=== PATIENT | male | born 1965 | race Caucasian/White ===

== ENCOUNTER 2020-11-17 13:36 | Emergency (ER) | payer SELFPAY ==
[~2020-11-17] VITALS: Ht 180.3 cm; Wt 85.0 kg
[~2020-11-17 13:36] MED LIST: AMLODIPINE10 MG PO; AUGMENTIN875TAB OR; CLINDAMYCIN300 M1 PO; CORTISPORIN OTI10 ML AS; LEVAQUIN500 MG PO; LISINOP/HCTZ1 TA2 PO; NAPROSYN500 MG PO; PENICILLN VK500 MG PO; ULTRAM50 MG OR; UNKNOWN MEDS; ZITHROMAX500 MG PO
[2020-11-17 17:28] LABS: HEMATOCRIT 47.9 % (39.0-50.0); HEMOGLOBIN 16.2 g/dl (14.0-18.0); IMMATURE GRANULOCYTES 0.8 % (0.0-5.0); MEAN CORPUSCULAR HGB 28.1 pG CALC (26.0-32.0); MEAN CORPUSCULAR HGB CONC 33.8 g/dL CAL (32.0-36.0); NEUT# 3.41 thou/uL (1.82-7.42); RED BLOOD COUNT 5.77 mill/uL (4.70-6.10); RED CELL DISTRI WIDTH 12.2 % (11.5-15.5)
[2020-11-17 17:39] LABS: ALBUMIN 4.8 g/dL (3.2-5.0); BILIRUBIN, TOTAL 0.6 mg/dL (0.0-1.4); BUN 16 mg/dL (9-20); BUN/CREATININE RATIO 17 (12-20 (CALC)); CHLORIDE 98 mmol/l (95-108); GFR > 60 ML/MIN (>=60 (CALC)); GFR FOR AFR.AMER. > 60 ML/MIN (>=60 (CALC)); POTASSIUM 4.5 mmol/l (3.5-5.1); SODIUM 135 mmol/l (137-146)
[2020-11-17 17:47] LABS: ALKALINE PHOSPHATASE 142 u/l (38-126); ANION GAP 29 (6-22 (CALC)); CARBON DIOXIDE 13 mmol/l (22-30); SGOT/AST 113 u/l (17-59); TOTAL PROTEIN 9.5 g/dL (6.3-8.2)
[2020-11-17 18:40] VITALS: BP 144/101
== END 2020-11-17 18:27 | disposition left against medical advice (07) | DRG 305 ==
LOC: ED 13:36
PROVIDERS: Emergency Medicine
DX: I10 Essential (primary) hypertension (principal); F17.200 Nicotine dependence, unspecified, uncomplicated; T46.5X6A Underdosing of other antihypertensive drugs, initial encounter; Z91.128 Patient's intentional underdosing of medication regimen for other reason; Z91.19 Patient's noncompliance with other medical treatment and regimen

== ENCOUNTER 2021-06-03 08:01 | Observation (INO) | payer SELFPAY ==
[~2021-06-03] VITALS: Ht 180.3 cm; Wt 96.0 kg
[2021-06-03] VITALS (20 sets, daily range): BP systolic 124–173; BP diastolic 74–114
[2021-06-03] MEDS ORDERED: PLAVIX75 MG PO (08:27)
[2021-06-03] MEDS ORDERED: METOPROL TAR25 MG PO (08:27)
[2021-06-03 09:46] LABS: HEMOGLOBIN 15.3 g/dl (14.0-18.0); IMMATURE GRANULOCYTES 0.2 % (0.0-5.0); MEAN CORPUSCULAR HGB 33.4 pG CALC (26.0-32.0); NEUT# 5.54 thou/uL (1.82-7.42); RED BLOOD COUNT 4.58 mill/uL (4.70-6.10); RED CELL DISTRI WIDTH 13.3 % (11.5-15.5)
[2021-06-03 09:50] LABS: URINE BILIRUBIN - DIPSTICK NEGATIVE (NEGATIVE); URINE BLOOD DIPSTICK NEGATIVE (NEGATIVE); URINE COLOR YELLOW; URINE GLUCOSE - DIPSTICK NEGATIVE (NEGATIVE); URINE KETONE NEGATIVE (NEGATIVE); URINE LEUK ESTERASE NEGATIVE (NEGATIVE); URINE PROTEIN - DIPSTICK NEGATIVE (NEG-TRACE); URINE UROBILINOGEN - DIPSTICK 0.2 E.U./dL (0.2)
[2021-06-03 09:50] LABS: MEAN CELL VOLUME 98.3 fL CALC (80.0-100.0)
[2021-06-03 09:51] LABS: URINE NITRITE - DIPSTICK NEGATIVE (Negative)
[2021-06-03 10:06] LABS: ALKALINE PHOSPHATASE 84 u/l (38-126); BILIRUBIN, TOTAL 0.4 mg/dL (0.0-1.4); BUN 10 mg/dL (9-20); BUN/CREATININE RATIO 17 (12-20 (CALC)); CHLORIDE 105 mmol/l (95-108); CREATININE 0.6 mg/dL (0.7-1.3); GFR > 60 ML/MIN (>=60 (CALC)); GFR FOR AFR.AMER. > 60 ML/MIN (>=60 (CALC)); POTASSIUM 4.2 mmol/l (3.5-5.1); SODIUM 134 mmol/l (137-146)
[2021-06-03 10:07] LABS: ANION GAP 10 (6-22 (CALC)); CARBON DIOXIDE 23 mmol/l (22-30); SGOT/AST 27 u/l (17-59); TOTAL PROTEIN 7.1 g/dL (6.3-8.2)
[2021-06-03 10:15] LABS: MYOGLOBIN 26 ng/mL (0 - 121)
[2021-06-04 03:09] VITALS: BP 154/98
[2021-06-04 05:28] LABS: ANION GAP 10 (6-22 (CALC)); BUN 11 mg/dL (9-20); BUN/CREATININE RATIO 15 (12-20 (CALC)); CALCULATED LDLCHOLESTEROL 97 mg/dL (62-129 (CALC)); CARBON DIOXIDE 22 mmol/l (22-30); CHLORIDE 106 mmol/l (95-108); CHOLESTEROL HDL RATIO 2.9 (<4.4 (CALC)); CREATININE 0.7 mg/dL (0.7-1.3); GFR > 60 ML/MIN (>=60 (CALC)); GFR FOR AFR.AMER. > 60 ML/MIN (>=60 (CALC)); HDL CHOLESTEROL 61 mg/dL (>=40); MAGNESIUM 2.1 mg/dL (1.6-2.3); POTASSIUM 4.3 mmol/l (3.5-5.1); SODIUM 134 mmol/l (137-146); TOTAL CHOLESTEROL 179 mg/dl (0-199); TOTAL TRIGLYCERIDES 108 mg/dl (30-149); VLDL CHOLESTROL 22 mg/dl (8-62 (CALC))
[2021-06-04 07:25] VITALS: BP 147/82
[2021-06-04] MEDS ORDERED: METOPROL TAR25 MG PO (10:58)
[2021-06-04] MEDS ORDERED: ADLT ASA LOW81 MG PO (10:58)
[2021-06-04] MEDS ORDERED: LISINOPRIL5 MG PO (11:00)
[2021-06-04] MEDS ORDERED: ATORVASTATIN CA40 MG PO (11:00)
[2021-06-04 11:17] VITALS: BP 127/85
== END 2021-06-04 12:04 | disposition home or self-care (01) | DRG 313 ==
LOC: ED 08:01 → ED-I 10:40 → ED 11:23 → MS2 11:24
PROVIDERS: Emergency Medicine; ADMIT Internal Medicine; ATTEND Internal Medicine
DX: R07.9 Chest pain, unspecified (principal); R42 Dizziness and giddiness; R01.1 Cardiac murmur, unspecified; I25.10 Atherosclerotic heart disease of native coronary artery without angina pectoris; I10 Essential (primary) hypertension; F17.200 Nicotine dependence, unspecified, uncomplicated; Z95.5 Presence of coronary angioplasty implant and graft; Z79.02 Long term (current) use of antithrombotics/antiplatelets; Z20.822 Contact with and (suspected) exposure to COVID-19
CPT/HCPCS: G0378

== ENCOUNTER 2021-07-01 10:27 | Emergency (ER) | payer SELFPAY ==
[~2021-07-01] VITALS: Ht 180.3 cm; Wt 96.4 kg
[~2021-07-01 10:27] MED LIST changes: +ADLT ASA LOW81 MG PO; +ATORVASTATIN CA40 MG PO; +LISINOPRIL5 MG PO; +METOPROL TAR25 MG PO; +PLAVIX75 MG PO
[2021-07-01 10:35] VITALS: BP 149/103
[2021-07-01 11:11] VITALS: BP 151/98
[2021-07-01] MEDS ORDERED: IBUPROFEN600 MG PO (11:16)
[2021-07-01] MEDS ORDERED: COLACE100 MG PO (11:16)
[2021-07-01 11:20] VITALS: BP 151/98
== END 2021-07-01 11:27 | disposition home or self-care (01) | DRG 950 ==
LOC: ED 10:27
DX: S01.01XD Laceration without foreign body of scalp, subsequent encounter (principal); S51.012D Laceration without foreign body of left elbow, subsequent encounter; K59.00 Constipation, unspecified; I10 Essential (primary) hypertension; F17.210 Nicotine dependence, cigarettes, uncomplicated; V29.9XXD Motorcycle rider (driver) (passenger) injured in unspecified traffic accident, subsequent encounter

== ENCOUNTER 2021-11-10 08:54 | Emergency (ER) | payer SELFPAY ==
[2021-11-10] VITALS (14 sets, daily range): BP systolic 117–198; BP diastolic 74–107
[~2021-11-10] VITALS: Ht 180.3 cm; Wt 100.0 kg
[~2021-11-10 08:54] MED LIST changes: +COLACE100 MG PO; +IBUPROFEN600 MG PO
[2021-11-10 09:31] LABS: HEMATOCRIT 46.5 % (39.0-50.0); HEMOGLOBIN 15.9 g/dl (14.0-18.0); IMMATURE GRANULOCYTES 0.5 % (0.0-5.0); MEAN CELL VOLUME 92.8 fL CALC (80.0-100.0); MEAN CORPUSCULAR HGB 31.7 pG CALC (26.0-32.0); MEAN CORPUSCULAR HGB CONC 34.2 g/dL CAL (32.0-36.0); NEUT# 4.19 thou/uL (1.82-7.42); RED BLOOD COUNT 5.01 mill/uL (4.70-6.10); RED CELL DISTRI WIDTH 13.4 % (11.5-15.5)
[2021-11-10 10:09] LABS: ALBUMIN 4.4 g/dL (3.2-5.0); ALKALINE PHOSPHATASE 104 u/l (38-126); ANION GAP 14 (6-22 (CALC)); BILIRUBIN, TOTAL 0.5 mg/dL (0.0-1.4); BUN 8 mg/dL (9-20); BUN/CREATININE RATIO 12 (12-20 (CALC)); CARBON DIOXIDE 24 mmol/l (22-30); CHLORIDE 103 mmol/l (95-108); CREATININE 0.7 mg/dL (0.7-1.3); GFR FOR AFR.AMER. > 60 ML/MIN (>=60 (CALC)); GFR OTHER RACES > 60 ML/MIN (>=60 (CALC)); LIPASE 143 u/l (23-300); POTASSIUM 4.3 mmol/l (3.5-5.1); SGOT/AST 31 u/l (17-59); SODIUM 136 mmol/l (137-146); TOTAL PROTEIN 7.6 g/dL (6.3-8.2)
== END 2021-11-10 11:56 | disposition short-term general hospital (02) | DRG 313 ==
LOC: ED 08:54
PROVIDERS: Internal Medicine
DX: R07.9 Chest pain, unspecified (principal); I10 Essential (primary) hypertension; F17.210 Nicotine dependence, cigarettes, uncomplicated; Z95.5 Presence of coronary angioplasty implant and graft; Z79.02 Long term (current) use of antithrombotics/antiplatelets

== ENCOUNTER 2024-03-05 14:08 | Emergency (ER) | payer MEDICARE ==
[~2024-03-05] VITALS: Ht 180.3 cm; Wt 135.0 kg
[2024-03-05] VITALS (15 sets, daily range): BP systolic 148–208; BP diastolic 73–164
[2024-03-05] MEDS ORDERED: SODIUM CHLORIDE 0.9% 1,000 ML IV ONE ×2 (14:15→15:45)
[2024-03-05] MEDS ORDERED: ONDANSETRON HCl 4 MG/2 ML SDV IV ONE (14:15)
[2024-03-05 14:25] LABS: EOS% 5.1 % (0-8); HEMOGLOBIN 16.9 g/dl (14.0-18.0); LYMPH% 19.7 % (15-41); MEAN CELL VOLUME 94.5 fL CALC (80.0-100.0); MEAN CORPUSCULAR HGB 31.9 pG CALC (26.0-32.0); MEAN CORPUSCULAR HGB CONC 33.8 g/dL CAL (32.0-36.0); MONO% 11.2 % (2-13); NEUT# 4.98 thou/uL (1.82-7.42); RED BLOOD COUNT 5.29 mill/uL (4.70-6.10); RED CELL DISTRI WIDTH 12.8 % (11.5-15.5)
[2024-03-05] MEDS ORDERED: hydrALAZINE HCL 20 MG/ML VIAL(1 ML) IV ONE (14:45)
[2024-03-05 14:48] LABS: ALBUMIN 4.7 g/dL (3.2-5.0); BILIRUBIN, TOTAL 0.4 mg/dL (0.2-1.3); CREATININE 0.7 mg/dL (0.7-1.3); POTASSIUM 3.9 mmol/l (3.5-5.1); TOTAL PROTEIN 8.1 g/dL (6.3-8.2)
[2024-03-05] MEDS ORDERED: ONDANSETRON4 MG PO (16:19)
[2024-03-05] MEDS ORDERED: CLONIDINE0.1 MG PO (16:19)
== END 2024-03-05 17:05 | disposition home or self-care (01) ==
LOC: ED 14:08
PROVIDERS: Family Medicine
DX: F10.139 Alcohol abuse with withdrawal, unspecified (principal); R11.2 Nausea with vomiting, unspecified; Y90.0 Blood alcohol level of less than 20 mg/100 ml; I10 Essential (primary) hypertension; F17.200 Nicotine dependence, unspecified, uncomplicated; Z95.5 Presence of coronary angioplasty implant and graft
CPT/HCPCS: J0360; J2405